=== PATIENT | female | born 2000 | race Two or more races ===

== ENCOUNTER 2023-12-19 18:27 | Emergency (ER) | payer OTHER ==
[~2023-12-19] VITALS: Ht 154.9 cm; Wt 88.9 kg
[2023-12-19] MEDS ORDERED: GLUMETZA500 MG (18:44)
[2023-12-19 20:03] LABS: URINE APPEARANCE Clear; URINE BILIRRUBIN Negative (NEGATIVE); URINE BLOOD Moderate; URINE COLOR Yellow; URINE GLUCOSE Negative (NEGATIVE); URINE LEUKOCYTE Small; URINE NITRATE Negative; URINE PROTEIN Negative (NEGATIVE)
[2023-12-19 20:05] LABS: HEMATOCRIT 34.2 % (36.0-45.00); HEMOGLOBIN 11.9 g/dL (12.0-15.00); MEAN CELL VOLUME 87.2 fL (80.00-100.00); MEAN CORPUSCULAR HEMOGLOBIN 30.3 pg (27.00-32.0); MEAN CORPUSCULAR HGB CONC 34.7 g/dl (32.0-36.0); PLATELET COUNT 353 K/uL (150-450); RED BLOOD COUNT 3.92 M/uL (4.00-6.00); RED CELL DISTRIBUTION WIDTH 12.8 % (11.5-14.5)
[2023-12-19 20:07] LABS: URINE BACTERIA 919.7 uL (0.0-1933); URINE EPITHELIAL CELLS 30.1 uL (0.0-38.8); URINE RBC 516.9 uL (0.0-20.8); URINE WBC 58.7 uL (0.0-23.2)
[2023-12-19 20:35] LABS: CALCIUM 9.2 mg/dL (8.5-10.1); CREATININE SERUM 0.47 mg/dL (0.55-1.02); GFR 164.21; POTASSIUM 3.34 mEq/L (3.5-5.1)
== END 2023-12-19 23:32 | disposition home or self-care (01) ==
LOC: ER 18:27
PROVIDERS: Emergency Medicine
DX: O23.41 Unspecified infection of urinary tract in pregnancy, first trimester (principal); N39.0 Urinary tract infection, site not specified; O24.811 Other pre-existing diabetes mellitus in pregnancy, first trimester; Z79.84 Long term (current) use of oral hypoglycemic drugs; Z3A.10 10 weeks gestation of pregnancy